=== PATIENT | male | born 1955 | race Caucasian/White ===

== ENCOUNTER 2017-04-12 10:05 | Inpatient (IN) | payer OTHER ==
[~2017-04-12] VITALS: Ht 170.2 cm; Wt 52.2 kg
[2017-04-12 10:08] VITALS: BP 143/110; PULSE 89; RESP 16; TEMP 98.6; O2SAT 95
[2017-04-12 10:24] VITALS: O2SAT 96
[2017-04-12] MEDS ORDERED: SODIUM CHLORIDE 0.9% FLUSH 10 ML FLUSH IVF PRN (10:30)
[2017-04-12] MEDS ORDERED: SODIUM CHLOR 0.9% 1000 ML INJ 1,000 ML IV ONE ×2 (10:30→10:45)
[2017-04-12] MEDS ORDERED: ONDANSETRON HCL 4 MG/2 ML VIAL IV PUSH ONE (10:45)
[2017-04-12] MEDS ORDERED: methylPREDNISolone SOD SUCC 125 MG/2 ML VIAL IV PUSH ONE (10:45)
[2017-04-12] MEDS ORDERED: RESP: ALBUTEROL 2.5 MG/IPRATROPIUM 0.5 MG NEB (SCH) INH ONE (10:45)
--- NOTE | 2017-04-12 10:46 | PD ---
HPI Chief Complaint: Cold / Flu Symptoms Time Seen by Provider: 10:20 Travel History International Travel<30 days: No Contact w/Intl Traveler<30days: No Traveled to known affect area: No History of Present Illness HPI Patient is a 61 year old male who presents to ER with complaints of flu like symptoms which has been ongoing for the past 5 days. Reports that for the past 4 days, he has been having high fevers with a tmax of 104.5. Reports that he has been having abdominal cramping with nausea and vomiting and diarrhea. Reports that he has had a nonproductive cough/congestion as well as body aches. He did not have the flu vaccine this year. Reports that he finally broke his fever yesterday. Reports that he was able to eat and drink yesterday for the first time but then began to feel nauseous last night. Patient denies any sick contacts, reports that he is a smoker with no medical problems. Patient denies any recent travels or trips. He has not taken any antipyretics this morning. Patient with no chest pain or shortness of breath at this time. PFSH Past Medical History Medical History: Denies Significant Hx Tetanus Vaccination: > 5 Years Past Surgical History Thoracic Surgery: Yes (back, lt shoulder) Social History Alcohol Use: No Tobacco Use: Yes Substance Use: No Allergies-Medications (Allergen,Severity, Reaction): Coded Allergies: vancomycin (Verified Allergy, Unknown, 04/12/17) Reported Meds & Prescriptions Reported Meds & Active Scripts Active No Active Prescriptions or Reported Medications Review of Systems General / Constitutional: Positive: Fever, Chills Eyes: No: Visual changes HENT: Positive: Congestion, No: Headaches, Vertigo, Lightheadedness, Neck Stiffness, Neck Pain Cardiovascular: No: Chest Pain or Discomfort, Palpitations, Irregular Rhythm, Tachycardia Respiratory: Positive: Cough, Wheezing, No: Shortness of Breath Gastrointestinal: Positive: Nausea, Vomiting, Diarrhea, No: Abdominal Pain, Constipation Genitourinary: No: Dysuria Musculoskeletal: No: Pain Skin: No Rash Neurologic: No: Weakness, Dizziness, Syncope, Focal Abnormalities, Headache Psychiatric: No: Depression Endocrine: No: Polydipsia Hematologic/Lymphatic: No: Easy Bruising Physical Exam Narrative GENERAL: Mild distress SKIN: Focused skin assessment warm/dry. HEAD: Atraumatic. Normocephalic. EYES: Pupils equal and round. No scleral icterus. No injection or drainage. ENT: No nasal bleeding or discharge. Mucous membranes pink and moist. NECK: Trachea midline. No JVD. CARDIOVASCULAR: Regular rate and rhythm. No murmur appreciated. RESPIRATORY: No accessory muscle use.mild expiratory wheezing at lung bases. Breath sounds equal bilaterally. GASTROINTESTINAL: Abdomen soft, non-tender, nondistended. Hepatic and splenic margins not palpable. MUSCULOSKELETAL: No obvious deformities. No clubbing. No cyanosis. No edema. NEUROLOGICAL: Awake and alert. No obvious cranial nerve deficits. Motor grossly within normal limits. Normal speech. PSYCHIATRIC: Appropriate mood and affect; insight and judgment normal. Data Data Last Documented VS Vital Signs Date Time Temp Pulse Resp B/P (MAP) Pulse Ox O2 Delivery O2 Flow Rate FiO2 04/12/17 10:59 97 21 04/12/17 10:24 04/12/17 10:08 98.6 89 16 Orders Orders Complete Blood Count With Diff (04/12/17 10:20) Basic Metabolic Panel (Bmp) (04/12/17 10:20) Influenzae A/B Antigen (04/12/17 10:20) Chest, Pa & Lat (04/12/17 10:20) Ecg Monitoring (04/12/17 10:20) Iv Access Insert/Monitor (04/12/17 10:20) Oximetry (04/12/17 10:20) Sodium Chloride 0.9% Flush (Ns Flush) (04/12/17 10:30) Sodium Chlor 0.9% 1000 Ml Inj (Ns 1000 M (04/12/17 10:30) Sodium Chlor 0.9% 1000 Ml Inj (Ns 1000 M (04/12/17 10:45) Ondansetron Inj (Zofran Inj) (04/12/17 10:45) Methylprednisolone So Succ Inj (Solumedr (04/12/17 10:45) Albuterol-Ipratropium Neb (Duoneb Neb) (04/12/17 10:45) Blood Culture (04/12/17 11:20) Azithromycin Inj (Zithromax Inj) (04/12/17 11:30) Ceftriaxone Inj (Rocephin Inj) (04/12/17 11:30) Admit To Inpatient (04/12/17 ) Code Status (04/12/17 13:00) Vital Signs (Adult) Q4H (04/12/17 13:00) Activity Oob With Assistance (04/12/17 13:00) Diet Heart Healthy (04/12/17 Lunch) Sodium Chloride 0.9% Flush (Ns Flush) (04/12/17 13:00) Sodium Chloride 0.9% Flush (Ns Flush) (04/12/17 21:00) Acetaminophen (Tylenol) (04/12/17 13:00) Ondansetron Inj (Zofran Inj) (04/12/17 13:00) Basic Metabolic Panel (Bmp) (04/13/17 06:00) Complete Blood Count With Diff (04/13/17 06:00) Chest, Pa & Lat (04/13/17 08:00) Electrocardiogram (04/12/17 13:00) Resp Oxygen Skip C Titrat 1-4 L (04/12/17 ) Pt Request For Service (04/12/17 13:00) Scd Bilateral/Knee High SHANA.BID (04/12/17 13:00) Naloxone Inj (Narcan Inj) (04/12/17 13:00) Magnesium Hydroxide Liq (Milk Of Magnesi (04/12/17 13:00) Inpatient Certification (04/12/17 ) Ns + Kcl 20 Meq Inj (Ns + Kcl 20 Meq Inj (04/12/17 13:15) Ceftriaxone Inj (Rocephin Inj) (04/13/17 08:00) Azithromycin (Zithromax) (04/13/17 09:00) Albuterol-Ipratropium Neb (Duoneb Neb) (04/12/17 14:00) Albuterol-Ipratropium Neb (Duoneb Neb) (04/12/17 13:15) Admit Order (Ed Use Only) (04/12/17 13:07) Labs Laboratory Tests Test 04/12/17 10:30 White Blood Count 16.8 TH/MM3 Red Blood Count 4.04 MIL/MM3 Hemoglobin 12.9 GM/DL Hematocrit 37.7 % Mean Corpuscular Volume 93.2 FL Mean Corpuscular Hemoglobin 32.0 PG Mean Corpuscular Hemoglobin Concent 34.3 % Red Cell Distribution Width 12.8 % Platelet Count 345 TH/MM3 Mean Platelet Volume 8.3 FL Neutrophils (%) (Auto) 85.9 % Lymphocytes (%) (Auto) 4.1 % Monocytes (%) (Auto) 8.9 % Eosinophils (%) (Auto) 0.1 % Basophils (%) (Auto) 1.0 % Neutrophils # (Auto) 14.4 TH/MM3 Lymphocytes # (Auto) 0.7 TH/MM3 Monocytes # (Auto) 1.5 TH/MM3 Eosinophils # (Auto) 0.0 TH/MM3 Basophils # (Auto) 0.2 TH/MM3 CBC Comment DIFF FINAL Differential Comment Blood Urea Nitrogen 12 MG/DL Creatinine 0.81 MG/DL Random Glucose 122 MG/DL Calcium Level 9.0 MG/DL Sodium Level 132 MEQ/L Potassium Level 4.4 MEQ/L Chloride Level 99 MEQ/L Carbon Dioxide Level 25.1 MEQ/L Anion Gap 8 MEQ/L Estimat Glomerular Filtration Rate 96 ML/MIN MDM Medical Decision Making Medical Screen Exam Complete: Yes Emergency Medical Condition: Yes Medical Record Reviewed: Yes Interpretation(s) Vital Signs Date Time Temp Pulse Resp B/P (MAP) Pulse Ox O2 Delivery O2 Flow Rate FiO2 04/12/17 10:24 96 04/12/17 10:08 98.6 89 16 143/110 (121) 95 Differential Diagnosis influenza, viral syndrome, copd exacerbation, pneumonia, gastroenteritis, electrolyte abnormality Narrative Course 61 year old male who presents to ER with c/o of of flu like symptoms which have been ongoing for the past 5 days. Patient was placed on a bilingual customer service upon arrival to the ER. Xray of chest ordered. CBC, BMP, influenza ordered. IVF as well as zofran ordered as patient does appear dehydrated. Patient does have mild expiratory wheezing on exam, IV solumedrol and a duoneb was ordered. Vital Signs Date Time Temp Pulse Resp B/P (MAP) Pulse Ox O2 Delivery O2 Flow Rate FiO2 04/12/17 10:59 97 21 04/12/17 10:24 96 04/12/17 10:08 98.6 89 16 143/110 (121) 95 CBC & BMP Diagram 04/12/17 10:30 Calcium Level 9.0 Last Impressions Chest X-Ray 04/12/17 1020 Signed Impressions: Service Date/Time: Wednesday, April 12, 2017 10:49 - CONCLUSION: Patchy partially consolidative segmental infiltrates in the right upper lobe. Recommend followup films to radiographic resolution. Eduar Smith MD Microbiology Date/Time Source Procedure Growth Status 04/12/17 12:10 Blood Peripheral Aerobic Blood Culture Pending Received 04/12/17 12:10 Blood Peripheral Anaerobic Blood Culture Pending Received 04/12/17 12:00 Blood Peripheral Aerobic Blood Culture Pending Received 04/12/17 12:00 Blood Peripheral Anaerobic Blood Culture Pending Received 04/12/17 10:30 Nasal Aspirate Influenza Types A,B Antigen (VANESSA) - Final NEGATIVE FOR FLU A AND B ANTIGEN.... Complete Patient reevaluated, patient reports that he is feeling only slightly better at this time. Patient is attempting to drink fluids with difficultly. Patient does not feel comfortable being discharged to home at this time. Plan to observe in hospital overnight. Case reviewed with Dr. Dixon who accepts pt to his service Diagnosis Primary Impression: Pneumonia Qualified Codes: J18.1 - Lobar pneumonia, unspecified organism Additional Impression: Nausea & vomiting Admitting Information Admitting Physician Requests: Observation Scripts No Active Prescriptions or Reported MedCeleste Becerra DO Apr 12, 2017 10:46
[2017-04-12 10:59] VITALS: O2SAT 97
[2017-04-12 11:00] LABS: AUTOMATED NEUTROPHIL # 14.4 TH/MM3 (1.8-7.7); BASOPHIL # 0.2 TH/MM3 (0-0.2); EOSINOPHIL % 0.1 % (0.0-4.0); HEMATOCRIT 37.7 % (39.0-51.0); HEMOGLOBIN 12.9 GM/DL (13.0-17.0); LYMPH % 4.1 % (9.0-44.0); LYMPHOCYTE # 0.7 TH/MM3 (1.0-4.8); MEAN CELL VOLUME 93.2 FL (80.0-100.0); MEAN CORPUSCULAR HGB CONC 34.3 % (32.0-36.0); MEAN PLATELET VOLUME 8.3 FL (7.0-11.0); MONO % 8.9 % (0.0-8.0); MONOCYTE # 1.5 TH/MM3 (0-0.9); NEUT % 85.9 % (16.0-70.0); PLATELET COUNT 345 TH/MM3 (150-450); RED BLOOD COUNT 4.04 MIL/MM3 (4.50-5.90); RED CELL DISTRIBUTION WIDTH 12.8 % (11.6-17.2); WHITE BLOOD COUNT 16.8 TH/MM3 (4.0-11.0)
--- NOTE | 2017-04-12 11:14 | RADRPT ---
EXAM DATE/TIME: 04/12/2017 10:49 [facility] COMPARISON: No previous studies available for comparison. INDICATIONS : No appetite, chest pain, short of breath., cough, fever MEDICAL HISTORY : None. SURGICAL HISTORY : None. ENCOUNTER: Initial ACUITY: 1 week PAIN SCORE: 10/10 LOCATION: Bilateral chest FINDINGS: The examination is abnormal demonstrating patchy areas of partial consolidation and bronchiectasis in the posterior right upper lung. This appears to be multisegmental in distribution, sparing the apex . The left lung is clear. The heart is normal size. Both hemidiaphragms are well delineated. The central bronchopulmonary markings, about the thomas, or well delineated. CONCLUSION: Patchy partially consolidative segmental infiltrates in the right upper lobe. Recommend followup jany ms to radiographic resolution. Eduar Smith MD on April 12, 2017 at 11:11 Board Certified Radiologist. This report was verified electronically.
[2017-04-12 11:26] LABS: BICARBONATE 25.1 MEQ/L (21.0-32.0); CREATININE 0.81 MG/DL (0.60-1.30)
[2017-04-12] MEDS ORDERED: cefTRIAXone INJ 1,000 MG in SODIUM CHLORIDE 0.9% INJ 100 ML IV ONE (11:30)
[2017-04-12] MEDS ORDERED: AZITHROMYCIN INJ 500 MG in SODIUM CHLOR 0.9% 250 ML INJ 250 ML IV ONE (11:30)
[2017-04-12] MEDS ORDERED: NALOXONE HCL 0.4 MG/ML AMP IV PUSH PRN (13:00)
[2017-04-12] MEDS ORDERED: SODIUM CHLORIDE 0.9% FLUSH 10 ML FLUSH IV FLUSH PRN (13:00)
[2017-04-12] MEDS ORDERED: ACETAMINOPHEN 325 MG TAB PO PRN (13:00)
[2017-04-12] MEDS ORDERED: MAGNESIUM HYDROXIDE SUSP 30 ML CUP PO PRN (13:00)
[2017-04-12] MEDS: NS + KCL 20 MEQ INJ 1,000 ML IV SCH (13:15)
[2017-04-12] MEDS ORDERED: RESP: ALBUTEROL 2.5 MG/IPRATROPIUM 0.5 MG NEB (PRN) NEB (13:15)
[2017-04-12 13:26] VITALS: TEMP 98.8
[2017-04-12] MEDS: RESP: ALBUTEROL 2.5 MG/IPRATROPIUM 0.5 MG NEB (SCH) NEB (13:42)
[2017-04-12] MEDS: NICOTINE 21 MG/24 HR PATCH T-DERMAL SCH (14:00)
[2017-04-12] MEDS: ONDANSETRON HCL 4 MG/2 ML VIAL IVP PRN (15:15)
[2017-04-12 16:00] VITALS: BP 135/67; PULSE 86; RESP 18; TEMP 98.6; O2SAT 95
--- NOTE | 2017-04-12 16:08 | HHI.HP ---
HPI Service [facility] Hospitalists Primary Care Physician Brian Ward MD Admission Diagnosis Pneumonia Chief Complaint: Fever, SOB, N/V, diarrhea Travel History International Travel<30 Days: No Contact w/Intl Traveler <30 Da: No Traveled to Known Affected Are: No History of Present Illness Mr. 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 Pt reports that his symptoms initially started with fever and myalgias with Tmax of 104.5. He had congestion and cough but not any worse than he typically has related to his smoking. Around 4-5 days ago he abdominal cramping with diarrhea which lasted 2-3 days. Then 2 days ago he started having vomiting and has been unable to keep much of any food or fluids down. He reports that today he has not had a significant fever, yesterday it was as high as 101 degrees. Yesterday he reports that he was able to eat and drink a small amount for the first time but then began to feel nauseous. He has been using Tylenol and Ibuprofen for the fevers and some holistic remedies for the fevers but otherwise no new medications. Patient denies any sick contacts, denies any recent travels or trips. He has not taken any antipyretics this morning. He has had some right sided chest discomfort with coughing but otherwise denies any SOB, palpitations , dizziness or weakness. He has lost about 4lbs over the last few days. Labs in the ED noted WBC count 16.8, Hgb 12.9/Hct 37.7, and Na+ 132. CXR noted patchy partially consolidative segmental infiltrates in the right upper lobe. Pt was started on Rocephin and Azithromycin in the ED. Review of Systems Constitutional: COMPLAINS OF: Fever, Change in appetite, DENIES: Diaphoretic episodes, Dizziness Eyes: DENIES: Vision loss Ears, nose, mouth, throat: DENIES: Hearing loss Respiratory: COMPLAINS OF: Cough, DENIES: Shortness of breath Cardiovascular: DENIES: Chest pain, Palpitations, Lower Extremity Edema Gastrointestinal: COMPLAINS OF: Diarrhea, Nausea, Vomiting Genitourinary: DENIES: Hematuria, Dysuria Musculoskeletal: DENIES: Back pain, Neck pain Integumentary: DENIES: Rash Neurologic: DENIES: Headache Psychiatric: DENIES: Confusion Past Family Social History Past Medical History Tobacco use 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, 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 Chronic back pain Past Surgical History Multiple surgeries to his hands and 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 Back surgery Tonsillectomy Right elbow surgery Reported Medications No prescription medications Allergies: Coded Allergies: vancomycin (Verified Allergy, Unknown, 04/12/17) Family History Noncontributory Social History (+)Tobacco use, smokes 1ppd x 40 years, but quit twice for a total of 10 years during that time (+)Marijuana use Denies any alcohol use Physical Exam Vital Signs Vital Signs Date Time Temp Pulse Resp B/P (MAP) Pulse Ox O2 Delivery O2 Flow Rate FiO2 04/12/17 13:26 98.8 04/12/17 10:59 97 21 04/12/17 10:24 96 04/12/17 10:08 98.6 89 16 143/110 (121) 95 Physical Exam GENERAL: This is a well-nourished, well-developed patient, in no apparent distress. SKIN: No rashes, ecchymoses or lesions. Cool and dry. HEENT: Atraumatic. Normocephalic. No temporal or scalp tenderness. No scleral icterus. Airway patent. NECK: Trachea midline, supple, nontender. CARDIO: Regular. RESP: CTA bilaterally. No wheezes, rales, or rhonchi. ABD: +BS, soft, non-tender, nondistended. EXT: Extremities without clubbing, cyanosis, or edema. NEURO: Awake and alert. Motor and sensory grossly within normal limits. Normal speech. Laboratory Laboratory Tests Test 04/12/17 10:30 White Blood Count 16.8 Red Blood Count 4.04 Hemoglobin 12.9 Hematocrit 37.7 Mean Corpuscular Volume 93.2 Mean Corpuscular Hemoglobin 32.0 Mean Corpuscular Hemoglobin Concent 34.3 Red Cell Distribution Width 12.8 Platelet Count 345 Mean Platelet Volume 8.3 Neutrophils (%) (Auto) 85.9 Lymphocytes (%) (Auto) 4.1 Monocytes (%) (Auto) 8.9 Eosinophils (%) (Auto) 0.1 Basophils (%) (Auto) 1.0 Neutrophils # (Auto) 14.4 Lymphocytes # (Auto) 0.7 Monocytes # (Auto) 1.5 Eosinophils # (Auto) 0.0 Basophils # (Auto) 0.2 CBC Comment DIFF FINAL Differential Comment Blood Urea Nitrogen 12 Creatinine 0.81 Random Glucose 122 Calcium Level 9.0 Sodium Level 132 Potassium Level 4.4 Chloride Level 99 Carbon Dioxide Level 25.1 Anion Gap 8 Estimat Glomerular Filtration Rate 96 Date/Time Source Procedure Growth Status 04/12/17 12:10 Blood Peripheral Aerobic Blood Culture Pending Received 04/12/17 12:10 Blood Peripheral Anaerobic Blood Culture Pending Received 04/12/17 10:30 Nasal Aspirate Influenza Types A,B Antigen (VANESSA) - Final NEGATIVE FOR FLU A AND B ANTIGEN.... Complete Result Diagram: 04/12/17 1030 04/12/17 1030 Imaging Last Impressions Chest X-Ray 04/12/17 1020 Signed Impressions: Service Date/Time: Wednesday, April 12, 2017 10:49 - CONCLUSION: Patchy partially consolidative segmental infiltrates in the right upper lobe. Recommend followup films to radiographic resolution. Eduar Smith MD Septic Shock Reassessment Heart: Regular rate and rhythm Lungs: Clear Skin: Warm Caprini VTE Risk Assessment Caprini VTE Risk Assessment: Mod/High Risk (score >= 2) Caprini Risk Assessment Model Point Value = 1 Point Value = 2 Point Value = 3 Point Value = 5 Age 41-60 Minor surgery BMI > 25 kg/m2 Swollen legs Varicose veins or History of unexplained or recurrent spontaneous Oral contraceptives or hormone replacement Sepsis (< 1 month) Serious lung disease, including pneumonia (< 1 month) Abnormal pulmonary function Acute myocardial infarction Congestive heart failure (< 1 month) History of inflammatory bowel disease Medical patient at bed rest Age 61-74 Arthroscopic surgery Major open surgery (> 45 min) Laparoscopic surgery (> 45 min) Malignancy Confined to bed (> 72 hours) Immobilizing plaster cast Central venous access Age >= 75 History of VTE Family history of VTE Factor V Leiden Prothrombin [id number] Lupus anticoagulant Anticardiolipin antibodies Elevated serum homocysteine Heparin-induced thrombocytopenia Other congenital or acquired thrombophilia Stroke (< 1 month) Elective arthroplasty Hip, pelvis, or leg fracture Acute spinal cord injury (< 1 month) Prophylaxis Regimen Total Risk Factor Score Risk Level Prophylaxis Regimen 0-1 Low Early ambulation 2 Moderate Order ONE of the following: *Sequential Compression Device (SCD) *Heparin 5000 units SQ BID 3-4 Higher Order ONE of the following medications: *Heparin 5000 units SQ TID *Enoxaparin/Lovenox 40 mg SQ daily (WT < 150 kg, CrCl > 30 mL/min) *Enoxaparin/Lovenox 30 mg SQ daily (WT < 150 kg, CrCl > 10-29 mL/min) *Enoxaparin/Lovenox 30 mg SQ BID (WT < 150 kg, CrCl > 30 mL/min) AND/OR *Sequential Compression Device (SCD) 5 or more Highest Order ONE of the following medications: *Heparin 5000 units SQ TID (Preferred with Epidurals) *Enoxaparin/Lovenox 40 mg SQ daily (WT < 150 kg, CrCl > 30 mL/min) *Enoxaparin/Lovenox 30 mg SQ daily (WT < 150 kg, CrCl > 10-29 mL/min) *Enoxaparin/Lovenox 30 mg SQ BID (WT < 150 kg, CrCl > 30 mL/min) AND *Sequential Compression Device (SCD) Assessment and Plan Problem List: (1) Pneumonia ICD Codes: J18.9 - Pneumonia, unspecified organism Status: Acute Plan: - Pt is a 61 y/o WM with hx of tobacco use and MRSA infections/osteomyelitis in his hands in the distant past who presented to ED at [facility] with complaints of flu like symptoms which began 6 days ago which included, fever with Tmax 104, myalgias, cough, congestion, N/V/D - No recent abx use, no new medications, denies any sick contacts, denies any recent travels or trips. - He has had some right sided chest discomfort with coughing - Labs in the ED noted WBC count 16.8, Hgb 12.9/Hct 37.7, and Na+ 132. - CXR noted patchy partially consolidative segmental infiltrates in the right upper lobe. - Pt was started on Rocephin and Azithromycin in the ED, we will continue these Abx - Pt tested negative for influenza in the ED - Blood cultures are pending. - IVF - Duonebs Q6H WA - Zofran PRN - Diet as tolerated - Consider Chest CT in AM - Supportive care - DVT prophylaxis with SCDs (2) Diarrhea ICD Codes: R19.7 - Diarrhea, unspecified Status: Acute Plan: - See above (3) Nausea & vomiting ICD Codes: R11.2 - Nausea with vomiting, unspecified Status: Acute Plan: - See above (4) Tobacco abuse ICD Codes: Z72.0 - Tobacco use Status: Chronic Plan: - Discussed cessation - Nicotine patch Assessment and Plan Patient examined. Assessment and plan formulated with Celeste Borden PA-C. I agree with the above. Problem Qualifiers (1) Pneumonia: Qualified Codes: J18.1 - Lobar pneumonia, unspecified organism Celeste Borden Apr 12, 2017 16:08 Mike Grigsby DO Apr 18, 2017 22:50
[2017-04-12 20:28] VITALS: BP 108/58; PULSE 69; RESP 21; TEMP 98.4; O2SAT 95
[2017-04-12] MEDS: SODIUM CHLORIDE 0.9% FLUSH 10 ML FLUSH IV FLUSH SCH (21:00)
[2017-04-13] VITALS (9 sets, daily range): BP systolic 106–123; BP diastolic 57–65; PULSE 58–73; RESP 17–18; TEMP 96.2–97.2; O2SAT 96–99
[2017-04-13] MEDS: NS + KCL 20 MEQ INJ 1,000 ML IV SCH ×2 (01:08→01:23)
[2017-04-13] MEDS: ONDANSETRON HCL 4 MG/2 ML VIAL IVP PRN (07:13)
[2017-04-13] MEDS: RESP: ALBUTEROL 2.5 MG/IPRATROPIUM 0.5 MG NEB (SCH) NEB ×3 (08:32→19:09)
[2017-04-13] MEDS: NICOTINE 21 MG/24 HR PATCH T-DERMAL SCH (08:56)
[2017-04-13] MEDS: REMOVE OLD PATCH T-DERMAL SCH (08:57)
[2017-04-13] MEDS: AZITHROMYCIN 250 MG TAB PO SCH (08:57)
[2017-04-13] MEDS: SODIUM CHLORIDE 0.9% FLUSH 10 ML FLUSH IV FLUSH SCH ×2 (08:59→21:54)
[2017-04-13] MEDS: cefTRIAXone INJ 1,000 MG in SODIUM CHLORIDE 0.9% INJ 100 ML IV SCH (08:59)
[2017-04-13 09:02] LABS: BASOPHIL % 0.4 % (0.0-2.0); HEMATOCRIT 33.2 % (39.0-51.0); HEMOGLOBIN 11.1 GM/DL (13.0-17.0); LYMPH % 7.9 % (9.0-44.0); MEAN CELL VOLUME 94.5 FL (80.0-100.0); MEAN CORPUSCULAR HEMOGLOBIN 31.7 PG (27.0-34.0); MEAN CORPUSCULAR HGB CONC 33.5 % (32.0-36.0); MEAN PLATELET VOLUME 8.6 FL (7.0-11.0); MONO % 8.6 % (0.0-8.0); MONOCYTE # 1.1 TH/MM3 (0-0.9); NEUT % 83.1 % (16.0-70.0); PLATELET COUNT 341 TH/MM3 (150-450); RED BLOOD COUNT 3.51 MIL/MM3 (4.50-5.90); RED CELL DISTRIBUTION WIDTH 12.8 % (11.6-17.2); WHITE BLOOD COUNT 13.2 TH/MM3 (4.0-11.0)
[2017-04-13] MEDS ORDERED: IOHEXOL 350 MG/ML 10 ML VIAL (for RAD DIAG) IVCONTRAST ONE (09:46)
[2017-04-13 10:15] LABS: BICARBONATE 24.7 MEQ/L (21.0-32.0); CALCIUM 8.7 MG/DL (8.5-10.1); CREATININE 0.79 MG/DL (0.60-1.30)
--- NOTE | 2017-04-13 11:42 | RADRPT ---
EXAM DATE/TIME: 04/13/2017 09:36 [facility] COMPARISON: CHEST PA & LAT, April 12, 2017, 10:49. INDICATIONS : Pneumonia, weight loss, cough, short of breath. IV CONTRAST: 60 cc Omnipaque 350 (iohexol) IV RADIATION DOSE: 3.36 CTDIvol (mGy) MEDICAL HISTORY : Osteomyelitis. SURGICAL HISTORY : None. ENCOUNTER: Initial ACUITY: 4 - 6 days PAIN SCALE: 0/10 LOCATION: Bilateral chest TECHNIQUE: Volumetric scanning of the chest was performed. Using automated exposure control and adjustment of t he mA and/or kV according to patient size, radiation dose was kept as low as reasonably achievable to obtain optimal diagnostic quality images. DICOM format image data is available electronically for review and comparison. Follow-up recommendations for detected pulmonary nodules are based at a minimum on nodule size and pa tient risk factors according to Fleischner Society Guidelines. FINDINGS: LUNGS: Diffuse emphysematous changes. Most pronounced within the upper lobes. A mixed interstitial and to a lesser degree intraalveolar opacity within the right upper lobe. There are areas of cavitation noted. No air fluid levels observed. More inferiorly within the right upper lobe this infiltrate turns to a groundglass appearance. Left lung is clear. PLEURA: There is no pleural thickening or pleural effusion. MEDIASTINUM: The heart and great vessels demonstrate no acute abnormality. There is no mediastinal or hilar lymph adenopathy. AXILLAE: Within normal limits. No lymphadenopathy. SKELETAL: Within normal limits for patient age. MISCELLANEOUS: The visualized upper abdominal organs demonstrate no acute abnormality. CONCLUSION: 1. Acute on chronic infiltrate within the right upper lobe. There is some cavitation observed suggest ing infection with atypical organisms. Followup studies to document resolution are needed. 2. Underlying emphysematous change. Eduar Silva Jr., MD on April 13, 2017 at 11:36 Board Certified Radiologist. This report was verified electronically.
--- NOTE | 2017-04-13 14:52 | EKG ---
Date Performed: 04/12/2017 Time Performed: 13:54:17 PTAGE: 61 years EKG: Sinus rhythm NORMAL ECG NO PREVIOUS TRACING DOCTOR: Yonny Ponce Interpretating Date/Time 04/13/2017 14:51:23
--- NOTE | 2017-04-13 14:52 | EKG ---
Date Performed: 04/12/2017 Time Performed: 13:54:17 PTAGE: 61 years EKG: Sinus rhythm NORMAL ECG NO PREVIOUS TRACING DOCTOR: Yonny Ponce Interpretating Date/Time 04/13/2017 14:51:23
--- NOTE | 2017-04-13 14:52 | EKG ---
Date Performed: 04/12/2017 Time Performed: 13:54:17 PTAGE: 61 years EKG: Sinus rhythm NORMAL ECG NO PREVIOUS TRACING DOCTOR: Yonny Ponce Interpretating Date/Time 04/13/2017 14:51:23
--- NOTE | 2017-04-13 16:34 | HHI.PR ---
Subjective Remarks fever improved from admission SOB improved from admission. Objective Vitals Vital Signs Date Time Temp Pulse Resp B/P (MAP) Pulse Ox O2 Delivery O2 Flow Rate FiO2 04/13/17 16:00 96.2 64 17 111/58 (75) 97 04/13/17 12:00 96.9 73 18 123/58 (79) 98 04/13/17 08:32 98 Nasal Cannula 2.00 04/13/17 08:00 96.9 58 17 119/65 (83) 96 04/13/17 01:46 98 Nasal Cannula 2.00 04/13/17 00:37 97.2 70 17 106/57 (73) 99 04/12/17 20:28 98.4 69 21 108/58 (75) 95 04/13/17 04/13/17 04/14/17 15:00 23:00 07:00 Intake Total 1100 ml Balance 1100 ml IV Total 1100 ml Result Diagram: 04/13/17 0810 04/13/17 0810 Imaging Last Impressions Chest CT 04/13/17 0600 Signed Impressions: Service Date/Time: Thursday, April 13, 2017 09:36 - CONCLUSION: 1. Acute on chronic infiltrate within the right upper lobe. There is some cavitation observed suggesting infection with atypical organisms. Followup studies to document resolution are needed. 2. Underlying emphysematous change. Eduar Silva Jr., MD Chest X-Ray 04/12/17 1020 Signed Impressions: Service Date/Time: Wednesday, April 12, 2017 10:49 - CONCLUSION: Patchy partially consolidative segmental infiltrates in the right upper lobe. Recommend followup films to radiographic resolution. Eduar Smith MD Objective Remarks GENERAL: This is a well-nourished, well-developed patient, in no apparent distress. CARDIOVASCULAR: Regular rate and rhythm without murmurs, gallops, or rubs. RESPIRATORY: Clear to auscultation. Breath sounds equal bilaterally. No wheezes , rales, or rhonchi. GASTROINTESTINAL: Abdomen soft, non-tender, nondistended. Normal active bowel sounds MUSCULOSKELETAL: Extremities without clubbing, cyanosis, or edema. NEURO: Alert & Oriented x4 to person, place, time, situation. Moves all ext x4 A/P Problem List: (1) Pneumonia ICD Codes: J18.9 - Pneumonia, unspecified organism Status: Acute Plan: - Pt is a 61 y/o WM with hx of tobacco use and MRSA infections/osteomyelitis in his hands in the distant past who [place] [facility] complaints of flu like symptoms which began 6 days ago which included, fever with Tmax 104, myalgias, cough, congestion, N/V/D - No recent abx use, no new medications, denies any sick contacts, denies any recent travels or trips. - He has had some right sided chest discomfort with coughing - Labs in the ED noted WBC count 16.8, Hgb 12.9/Hct 37.7, and Na+ 132. - CXR noted patchy partially consolidative segmental infiltrates in the right upper lobe. - Pt was started on Rocephin and Azithromycin (04/12 - present) - Pt tested negative for influenza in the ED - Blood cultures (04/12) --> NGTD - CT chest (04/13) --> right cavitating lesions - Consult Pulmonary, consider bronchoscopy with studies to identify pathogen and guide antibiotics - Duonebs Q6H WA - Zofran PRN - Diet as tolerated - Supportive care - DVT prophylaxis with SCDs (2) Diarrhea ICD Codes: R19.7 - Diarrhea, unspecified Status: Acute Plan: - See above (3) Nausea & vomiting ICD Codes: R11.2 - Nausea with vomiting, unspecified Status: Acute Plan: - See above (4) Tobacco abuse ICD Codes: Z72.0 - Tobacco use Status: Chronic Plan: - Discussed cessation - Nicotine patch Problem Qualifiers (1) Pneumonia: Qualified Codes: J18.1 - Lobar pneumonia, unspecified organism Mike Grigsby DO Apr 13, 2017 16:34
--- NOTE | 2017-04-13 19:26 | MB ---
cc: SHRUTI BAHENA M.D. DATE OF CONSULTATION 04/13/17 REASON FOR CONSULTATION Pneumonia. HISTORY OF PRESENT ILLNESS The patient is a 66-year-old male who comes to the emergency room with a 5-6 day history of fever, chills, cough and expectoration of dark brownish sputum, poor appetite, 2-3 pound weight loss in the last few days. The patient is in no distress. Oxygen saturation is adequate on room air. CT scan of the chest revealed right upper lobe infiltrate with an acute and chronic component with what appears to be some cavitation. 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 He has a long smoking history, continues to smoke until present. PAST MEDICAL HISTORY 1. MRSA infection and osteomyelitis of the right hand as mentioned above. This was in the s. 2. He had hand surgery 3. Back surgery, 4. Tonsillectomy, 5. Right elbow surgery in the past. MEDICATIONS None. ALLERGIES VANCOMYCIN FAMILY HISTORY Noncontributory. REVIEW OF SYSTEMS A 12-point review of systems as per HPI and past history otherwise negative. SOCIAL HISTORY Smokes a pack of cigarettes daily 40 years, has smoked for a short period of time in between. He smokes marijuana on occasion. Does not drink any alcohol. No TB or industrial exposure. PHYSICAL EXAMINATION GENERAL: The patient is alert. VITAL SIGNS: Temperature 98.8, pulse 86, respirations 16, blood pressure 140/96, oxygen saturation 97% room air. HEENT: Exam unremarkable. Eyes without icterus. NECK: Without adenopathy or thyroid enlargement. Central trachea. CHEST: Few scattered rhonchi right chest. CARDIAC: PMI distant. S1-S2 audible. No murmur or rub. ABDOMEN: Lax, bowel sounds audible. EXTREMITIES: No clubbing, cyanosis or edema. SKIN: Normal. No lymphadenopathy. LABORATORY DATA White count 16.8, hemoglobin 12, hematocrit 37, platelets 345,000. Sodium 132, potassium 4.4, BUN 12, creatinine 0.8. IMAGING STUDIES CT scan of the chest - right upper lung lobe infiltrate with cavitation. IMPRESSION 1. Right upper lobe pneumonia and cavitation. 2. Probable COPD. 3. Tobacco abuse. PLAN The patient has been started on antibiotic therapy and appropriately so. He does have a pneumonia, cavitation is noted as well. However, given the presentation of acute onset fever, cough expectoration, community-acquired pneumonia is a possibility. MRSA although a possibility the original infection has been over a decade ago. The patient does have copious sputum production and sputum culture will probably be helpful in that regard. Should the patient continue to improve well and good, if not we will proceed with bronchoscopy to assess if any underlying atypical infection or malignancy is present. I discussed this and explained to the patient in full detail. I do thank you for asking me to partake in Mr. Caruso's care. Shruti Bahena MD WWW/ /6:48 PM /7:05 PM
[2017-04-14] VITALS (7 sets, daily range): BP systolic 101–112; BP diastolic 55–79; PULSE 78–104; RESP 17–18; TEMP 97.3–101.3; O2SAT 93–98
[2017-04-14 07:55] LABS: AUTOMATED NEUTROPHIL # 12.4 TH/MM3 (1.8-7.7); BASOPHIL % 0.2 % (0.0-2.0); EOSINOPHIL % 0.3 % (0.0-4.0); HEMATOCRIT 33.7 % (39.0-51.0); HEMOGLOBIN 11.4 GM/DL (13.0-17.0); LYMPH % 9.2 % (9.0-44.0); LYMPHOCYTE # 1.4 TH/MM3 (1.0-4.8); MEAN CELL VOLUME 94.3 FL (80.0-100.0); MEAN CORPUSCULAR HGB CONC 33.9 % (32.0-36.0); MEAN PLATELET VOLUME 8.4 FL (7.0-11.0); MONO % 7.6 % (0.0-8.0); MONOCYTE # 1.1 TH/MM3 (0-0.9); NEUT % 82.7 % (16.0-70.0); PLATELET COUNT 395 TH/MM3 (150-450); RED BLOOD COUNT 3.57 MIL/MM3 (4.50-5.90)
[2017-04-14] MEDS: RESP: ALBUTEROL 2.5 MG/IPRATROPIUM 0.5 MG NEB (SCH) NEB ×3 (08:15→20:28)
[2017-04-14] MEDS ORDERED: TUBERCULIN, PPD 5 UNITS/0.1 ML SYRINGE I-DERMAL ONE (09:00)
--- NOTE | 2017-04-14 09:12 | HHI.PR ---
Subjective Remarks ALERT AMBULATINF NO SOB Objective Vital Signs Date Time Temp Pulse Resp B/P (MAP) Pulse Ox O2 Delivery O2 Flow Rate FiO2 04/14/17 08:18 98 04/14/17 08:00 99.7 79 17 107/57 (74) 97 04/14/17 00:00 97.7 78 18 107/79 (88) 98 04/13/17 20:14 96.4 72 18 113/62 (79) 97 04/13/17 19:09 97 Nasal Cannula 2.00 04/13/17 16:00 96.2 64 17 111/58 (75) 97 04/13/17 12:00 96.9 73 18 123/58 (79) 98 I/O 04/13/17 04/13/17 04/13/17 04/14/17 04/14/17 04/14/17 07:00 15:00 23:00 07:00 15:00 23:00 Intake Total 580 ml 5762 ml 320 ml Output Total 500 ml Balance 580 ml 5762 ml -180 ml Intake Oral 580 ml 3120 ml 320 ml IV Total 2642 ml Output Urine Total 500 ml # Voids 4 12 # Bowel Movements 2 0 Result Diagram: 04/14/17 0521 04/13/17 0810 Objective Remarks GENERAL: SKIN: Warm and dry. HEAD: Atraumatic. Normocephalic. EYES: Pupils equal and round. No scleral icterus. No injection or drainage. ENT: No nasal bleeding or discharge. Mucous membranes pink and moist. NECK: Trachea midline. No JVD. CARDIOVASCULAR: Regular rate and rhythm. RESPIRATORY: No accessory muscle use. Clear to auscultation. Breath sounds equal bilaterally. GASTROINTESTINAL: Abdomen soft, non-tender, nondistended. Hepatic and splenic margins not palpable. MUSCULOSKELETAL: Extremities without clubbing, cyanosis, or edema. No obvious deformities. NEUROLOGICAL: Awake and alert. No obvious cranial nerve deficits. Motor grossly within normal limits. Five out of 5 muscle strength in the arms and legs. Normal speech. PSYCHIATRIC: Appropriate mood and affect; insight and judgment normal. Assessment and Plan Assessment and Plan CAVITARY PNEUMONIA COPD SPUTUM CULTURE PENDING BLOOD CULTURE NEGATIVE PLAN ANTIBX CHECK SPUTUM CULTURE BRONCHOSCOPY Shruti Dyer MD Apr 14, 2017 09:12
[2017-04-14] MEDS: cefTRIAXone INJ 1,000 MG in SODIUM CHLORIDE 0.9% INJ 100 ML IV SCH (09:49)
[2017-04-14] MEDS: AZITHROMYCIN 250 MG TAB PO SCH (09:49)
[2017-04-14] MEDS: SODIUM CHLORIDE 0.9% FLUSH 10 ML FLUSH IV FLUSH SCH ×2 (09:53→22:07)
[2017-04-14] MEDS: REMOVE OLD PATCH T-DERMAL SCH (09:55)
[2017-04-14] MEDS: NICOTINE 21 MG/24 HR PATCH T-DERMAL SCH (09:55)
[2017-04-14 13:08] LABS: INTERNATIONAL NORMALIZED RATIO 1.1 RATIO; PROTHROMBIN TIME - PATIENT 12.4 SEC (9.8-11.6)
--- NOTE | 2017-04-14 13:29 | HHI.PR ---
Subjective Remarks Patient reports only small soft BMs feels as though his is unable to have a complete BM reports chest congestion has moved to the left lung Objective Vitals Vital Signs Date Time Temp Pulse Resp B/P (MAP) Pulse Ox O2 Delivery O2 Flow Rate FiO2 04/14/17 12:00 99.3 89 17 112/56 (74) 98 04/14/17 08:18 98 04/14/17 08:00 99.7 79 17 107/57 (74) 97 04/14/17 00:00 97.7 78 18 107/79 (88) 98 04/13/17 20:14 96.4 72 18 113/62 (79) 97 04/13/17 19:09 97 Nasal Cannula 2.00 04/13/17 16:00 96.2 64 17 111/58 (75) 97 04/14/17 04/14/17 04/15/17 15:00 23:00 07:00 Intake Total 100 ml Balance 100 ml IV Total 100 ml Result Diagram: 04/14/17 0521 04/13/17 0810 Other Results Laboratory Tests Test 04/12/17 10:30 04/13/17 08:10 04/14/17 05:21 04/14/17 12:38 White Blood Count 16.8 TH/MM3 13.2 TH/MM3 15.0 TH/MM3 Red Blood Count 4.04 MIL/MM3 3.51 MIL/MM3 3.57 MIL/MM3 Hemoglobin 12.9 GM/DL 11.1 GM/DL 11.4 GM/DL Hematocrit 37.7 % 33.2 % 33.7 % Mean Corpuscular Volume 93.2 FL 94.5 FL 94.3 FL Mean Corpuscular Hemoglobin 32.0 PG 31.7 PG 32.0 PG Mean Corpuscular Hemoglobin Concent 34.3 % 33.5 % 33.9 % Red Cell Distribution Width 12.8 % 12.8 % 13.0 % Platelet Count 345 TH/MM3 341 TH/MM3 395 TH/MM3 Mean Platelet Volume 8.3 FL 8.6 FL 8.4 FL Neutrophils (%) (Auto) 85.9 % 83.1 % 82.7 % Lymphocytes (%) (Auto) 4.1 % 7.9 % 9.2 % Monocytes (%) (Auto) 8.9 % 8.6 % 7.6 % Eosinophils (%) (Auto) 0.1 % 0.0 % 0.3 % Basophils (%) (Auto) 1.0 % 0.4 % 0.2 % Neutrophils # (Auto) 14.4 TH/MM3 11.0 TH/MM3 12.4 TH/MM3 Lymphocytes # (Auto) 0.7 TH/MM3 1.0 TH/MM3 1.4 TH/MM3 Monocytes # (Auto) 1.5 TH/MM3 1.1 TH/MM3 1.1 TH/MM3 Eosinophils # (Auto) 0.0 TH/MM3 0.0 TH/MM3 0.0 TH/MM3 Basophils # (Auto) 0.2 TH/MM3 0.0 TH/MM3 0.0 TH/MM3 CBC Comment DIFF FINAL DIFF FINAL DIFF FINAL Differential Comment Blood Urea Nitrogen 12 MG/DL 11 MG/DL Creatinine 0.81 MG/DL 0.79 MG/DL Random Glucose 122 MG/DL 122 MG/DL Calcium Level 9.0 MG/DL 8.7 MG/DL Sodium Level 132 MEQ/L 136 MEQ/L Potassium Level 4.4 MEQ/L 4.2 MEQ/L Chloride Level 99 MEQ/L 103 MEQ/L Carbon Dioxide Level 25.1 MEQ/L 24.7 MEQ/L Anion Gap 8 MEQ/L 8 MEQ/L Estimat Glomerular Filtration Rate 96 ML/MIN 99 ML/MIN Prothrombin Time 12.4 SEC Prothromb Time International Ratio 1.1 RATIO Imaging Last Impressions Chest CT 04/13/17 0600 Signed Impressions: Service Date/Time: Thursday, April 13, 2017 09:36 - CONCLUSION: 1. Acute on chronic infiltrate within the right upper lobe. There is some cavitation observed suggesting infection with atypical organisms. Followup studies to document resolution are needed. 2. Underlying emphysematous change. Eduar Silva Jr., MD Chest X-Ray 04/12/17 1020 Signed Impressions: Service Date/Time: Wednesday, April 12, 2017 10:49 - CONCLUSION: Patchy partially consolidative segmental infiltrates in the right upper lobe. Recommend followup films to radiographic resolution. Eduar Smith MD Objective Remarks GENERAL: This is a well-nourished, well-developed patient, in no apparent distress. CARDIOVASCULAR: Regular rate and rhythm without murmurs, gallops, or rubs. RESPIRATORY: poor air movement with scattered expiratory wheezing GASTROINTESTINAL: Abdomen soft, non-tender, nondistended. Normal active bowel sounds MUSCULOSKELETAL: Extremities without clubbing, cyanosis, or edema. NEURO: Alert & Oriented x4 to person, place, time, situation. Moves all ext x4 A/P Problem List: (1) Pneumonia ICD Codes: J18.9 - Pneumonia, unspecified organism Status: Acute Plan: - Pt is a 61 y/o WM with hx of tobacco use and MRSA infections/osteomyelitis in his hands in the distant past who presented to ED at [facility] with complaints of flu like symptoms which began 6 days ago which included, fever with Tmax 104, myalgias, cough, congestion, N/V/D - No recent abx use, no new medications, denies any sick contacts, denies any recent travels or trips. - He has had some right sided chest discomfort with coughing - Labs in the ED noted WBC count 16.8, Hgb 12.9/Hct 37.7, and Na+ 132. - CXR noted patchy partially consolidative segmental infiltrates in the right upper lobe. - Pt was started on Rocephin and Azithromycin (04/12 - present) - Pt tested negative for influenza in the ED - Blood cultures (04/12) --> NGTD - CT chest (04/13) --> right cavitating lesions - expectorated sputum culture pending - Consult Pulmonary, Plan bronchoscopy in AM with studies to identify pathogen and guide antibiotics - Duonebs Q6H WA - add prednisone 60 mg PO BID - Zofran PRN - Diet as tolerated - Supportive care - DVT prophylaxis with SCDs (2) Diarrhea ICD Codes: R19.7 - Diarrhea, unspecified Status: Acute Plan: - See above (3) Nausea & vomiting ICD Codes: R11.2 - Nausea with vomiting, unspecified Status: Acute Plan: - See above (4) Tobacco abuse ICD Codes: Z72.0 - Tobacco use Status: Chronic Plan: - Discussed cessation - Nicotine patch Assessment and Plan Patient examined. Assessment and plan formulated with Amanda Macias PA-C. I agree with the above. Problem Qualifiers (1) Pneumonia: Qualified Codes: J18.1 - Lobar pneumonia, unspecified organism Amanda Macias Apr 14, 2017 13:29 Mike Grigsby DO Apr 18, 2017 22:47
[2017-04-14] MEDS ORDERED: MAGNESIUM HYDROXIDE SUSP 30 ML CUP PO ONE (14:00)
[2017-04-14] MEDS: predniSONE 20 MG TAB PO SCH (15:22)
--- NOTE | 2017-04-14 17:08 | RADRPT ---
EXAM DATE/TIME: 04/14/2017 15:47 [place] COMPARISON: No previous studies available for comparison. INDICATIONS : Diarrhea starting today MEDICAL HISTORY : None. SURGICAL HISTORY : Fusion, lumbar. ENCOUNTER: Initial ACUITY: 1 day PAIN SCORE: 0/10 LOCATION: Abdomen FINDINGS: Supine view of the abdomen was performed. The abdominal bowel gas pattern is normal. No abnormal ma sses, calcifications, or organomegaly is seen. Prior lumbar surgery with 2 osseous screws securing th e L4-5 and L5-S1 interspaces. The right-sided screw at L4-5 is fractured. Degenerative disc disease t hroughout the lumbar spine with loss of disc height. CONCLUSION: 1. Radiographically benign abdomen without obstruction or pneumoperitoneum. 2. Osseous screws securing the L4-5 and L5-S1 levels. The right-sided L4-5 screw is fractured. Cyril Berrios MD on April 14, 2017 at 17:05 Board Certified Radiologist. This report was verified electronically.
[2017-04-14] MEDS ORDERED: LACTATED RINGER'S 1000 ML IV PRN (21:30)
[2017-04-14] MEDS ORDERED: METOPROLOL TARTRATE 25 MG TAB PO PRN (21:30)
[2017-04-15] VITALS (7 sets, daily range): BP systolic 107–116; BP diastolic 57–71; PULSE 75–92; RESP 18–21; TEMP 96.9–97.8; O2SAT 95–100
[2017-04-15] MEDS: predniSONE 20 MG TAB PO SCH ×2 (02:14→15:00)
[2017-04-15] MEDS: RESP: ALBUTEROL 2.5 MG/IPRATROPIUM 0.5 MG NEB (SCH) NEB ×3 (07:47→20:10)
[2017-04-15] MEDS: cefTRIAXone INJ 1,000 MG in SODIUM CHLORIDE 0.9% INJ 100 ML IV SCH (08:56)
[2017-04-15] MEDS: AZITHROMYCIN 250 MG TAB PO SCH (08:56)
[2017-04-15] MEDS: SODIUM CHLORIDE 0.9% FLUSH 10 ML FLUSH IV FLUSH SCH ×2 (08:57→22:25)
[2017-04-15] MEDS: REMOVE OLD PATCH T-DERMAL SCH (08:59)
[2017-04-15] MEDS: NICOTINE 21 MG/24 HR PATCH T-DERMAL SCH (09:00)
[2017-04-15] MEDS ORDERED: PROPOFOL 200 MG/20 ML AMP IV ONE (12:00)
[2017-04-15] MEDS ORDERED: LIDOCAINE HCL 1% PF 5 ML AMPULE OTHER ONE (12:00)
[2017-04-15 12:22] LABS: AUTOMATED NEUTROPHIL # 11.7 TH/MM3 (1.8-7.7); BASOPHIL # 0.1 TH/MM3 (0-0.2); BASOPHIL % 0.5 % (0.0-2.0); EOSINOPHIL % 0.1 % (0.0-4.0); HEMATOCRIT 34.4 % (39.0-51.0); HEMOGLOBIN 11.6 GM/DL (13.0-17.0); LYMPH % 11.7 % (9.0-44.0); LYMPHOCYTE # 1.7 TH/MM3 (1.0-4.8); MEAN CORPUSCULAR HEMOGLOBIN 32.1 PG (27.0-34.0); MEAN CORPUSCULAR HGB CONC 33.8 % (32.0-36.0); MEAN PLATELET VOLUME 8.1 FL (7.0-11.0); MONOCYTE # 0.9 TH/MM3 (0-0.9); NEUT % 81.7 % (16.0-70.0); PLATELET COUNT 405 TH/MM3 (150-450); RED BLOOD COUNT 3.62 MIL/MM3 (4.50-5.90); RED CELL DISTRIBUTION WIDTH 12.8 % (11.6-17.2); WHITE BLOOD COUNT 14.4 TH/MM3 (4.0-11.0)
[2017-04-15] MEDS ORDERED: EPINEPHrine HCL (1:1000) 1 MG/ML VIAL ONE (13:57)
[2017-04-15] MEDS ORDERED: LIDOCAINE HCL 2% 50 ML VIAL ONE (13:57)
[2017-04-15] MEDS ORDERED: SODIUM CHLORIDE 0.9% 20 ML VIAL ONE (15:44)
--- NOTE | 2017-04-15 16:07 | HHI.PR ---
Subjective Remarks ALERT AMBULATINF NO SOB Objective Vital Signs Date Time Temp Pulse Resp B/P (MAP) Pulse Ox O2 Delivery O2 Flow Rate FiO2 04/15/17 12:00 97.7 92 19 114/71 (85) 98 04/15/17 08:00 96.9 75 19 114/62 (79) 97 04/15/17 07:47 97 21 04/15/17 00:33 97.8 87 18 116/62 (80) 96 04/14/17 20:39 97.3 80 18 101/59 (73) 96 04/14/17 20:28 93 21 I/O 04/14/17 04/14/17 04/14/17 04/15/17 04/15/17 04/15/17 07:00 15:00 23:00 07:00 15:00 23:00 Intake Total 320 ml 100 ml 2500 ml 100 ml Output Total 500 ml Balance -180 ml 100 ml 2500 ml 100 ml Intake Oral 320 ml 2500 ml 0 ml IV Total 100 ml 100 ml Output Urine Total 500 ml # Voids 12 # Bowel Movements 0 1 Result Diagram: 04/15/17 1159 04/13/17 0810 Objective Remarks GENERAL: SKIN: Warm and dry. HEAD: Atraumatic. Normocephalic. EYES: Pupils equal and round. No scleral icterus. No injection or drainage. ENT: No nasal bleeding or discharge. Mucous membranes pink and moist. NECK: Trachea midline. No JVD. CARDIOVASCULAR: Regular rate and rhythm. RESPIRATORY: No accessory muscle use. Clear to auscultation. Breath sounds equal bilaterally. GASTROINTESTINAL: Abdomen soft, non-tender, nondistended. Hepatic and splenic margins not palpable. MUSCULOSKELETAL: Extremities without clubbing, cyanosis, or edema. No obvious deformities. NEUROLOGICAL: Awake and alert. No obvious cranial nerve deficits. Motor grossly within normal limits. Five out of 5 muscle strength in the arms and legs. Normal speech. PSYCHIATRIC: Appropriate mood and affect; insight and judgment normal. Assessment and Plan Assessment and Plan CAVITARY PNEUMONIA COPD SPUTUM CULTURE PENDING BLOOD CULTURE NEGATIVE PLAN ANTIBX CHECK SPUTUM CULTURE BRONCHOSCOPY TODAY Shruti Bahena MD Apr 15, 2017 16:07
[2017-04-15] MEDS ORDERED: *RESP: ALBUTEROL 2.5 MG/3 ML NEB (PRN) PERIprocedural Use ONLY NEB ONE (16:14)
--- NOTE | 2017-04-15 17:27 | HHI.PR ---
Subjective Remarks Patient up ambulating about room s/p bronchoscopy today offers no specific complaints Objective Vitals Vital Signs Date Time Temp Pulse Resp B/P (MAP) Pulse Ox O2 Delivery O2 Flow Rate FiO2 04/15/17 16:44 97.8 83 20 107/57 (74) 96 04/15/17 16:27 98.4 84 16 97/52 (67) 94 Room Air 04/15/17 16:15 85 16 115/59 (77) 95 Room Air 04/15/17 16:11 98.0 84 16 113/53 (73) 94 Nasal Cannula 2 04/15/17 12:00 97.7 92 19 114/71 (85) 98 04/15/17 08:00 96.9 75 19 114/62 (79) 97 04/15/17 07:47 97 21 04/15/17 00:33 97.8 87 18 116/62 (80) 96 04/14/17 20:39 97.3 80 18 101/59 (73) 96 04/14/17 20:28 93 21 04/15/17 04/15/17 04/16/17 15:00 23:00 07:00 Intake Total 100 ml Balance 100 ml Intake Oral 0 ml IV Total 100 ml Result Diagram: 04/15/17 1159 04/13/17 0810 Other Results Laboratory Tests Test 04/13/17 08:10 04/14/17 05:21 04/14/17 12:38 04/15/17 11:59 White Blood Count 13.2 TH/MM3 15.0 TH/MM3 14.4 TH/MM3 Red Blood Count 3.51 MIL/MM3 3.57 MIL/MM3 3.62 MIL/MM3 Hemoglobin 11.1 GM/DL 11.4 GM/DL 11.6 GM/DL Hematocrit 33.2 % 33.7 % 34.4 % Mean Corpuscular Volume 94.5 FL 94.3 FL 95.0 FL Mean Corpuscular Hemoglobin 31.7 PG 32.0 PG 32.1 PG Mean Corpuscular Hemoglobin Concent 33.5 % 33.9 % 33.8 % Red Cell Distribution Width 12.8 % 13.0 % 12.8 % Platelet Count 341 TH/MM3 395 TH/MM3 405 TH/MM3 Mean Platelet Volume 8.6 FL 8.4 FL 8.1 FL Neutrophils (%) (Auto) 83.1 % 82.7 % 81.7 % Lymphocytes (%) (Auto) 7.9 % 9.2 % 11.7 % Monocytes (%) (Auto) 8.6 % 7.6 % 6.0 % Eosinophils (%) (Auto) 0.0 % 0.3 % 0.1 % Basophils (%) (Auto) 0.4 % 0.2 % 0.5 % Neutrophils # (Auto) 11.0 TH/MM3 12.4 TH/MM3 11.7 TH/MM3 Lymphocytes # (Auto) 1.0 TH/MM3 1.4 TH/MM3 1.7 TH/MM3 Monocytes # (Auto) 1.1 TH/MM3 1.1 TH/MM3 0.9 TH/MM3 Eosinophils # (Auto) 0.0 TH/MM3 0.0 TH/MM3 0.0 TH/MM3 Basophils # (Auto) 0.0 TH/MM3 0.0 TH/MM3 0.1 TH/MM3 CBC Comment DIFF FINAL DIFF FINAL DIFF FINAL Differential Comment Blood Urea Nitrogen 11 MG/DL Creatinine 0.79 MG/DL Random Glucose 122 MG/DL Calcium Level 8.7 MG/DL Sodium Level 136 MEQ/L Potassium Level 4.2 MEQ/L Chloride Level 103 MEQ/L Carbon Dioxide Level 24.7 MEQ/L Anion Gap 8 MEQ/L Estimat Glomerular Filtration Rate 99 ML/MIN Prothrombin Time 12.4 SEC Prothromb Time International Ratio 1.1 RATIO Imaging Last Impressions Chest CT 04/13/17 0600 Signed Impressions: Service Date/Time: Thursday, April 13, 2017 09:36 - CONCLUSION: 1. Acute on chronic infiltrate within the right upper lobe. There is some cavitation observed suggesting infection with atypical organisms. Followup studies to document resolution are needed. 2. Underlying emphysematous change. Eduar Silva Jr., MD Chest X-Ray 04/12/17 1020 Signed Impressions: Service Date/Time: Wednesday, April 12, 2017 10:49 - CONCLUSION: Patchy partially consolidative segmental infiltrates in the right upper lobe. Recommend followup films to radiographic resolution. Eduar Smith MD Objective Remarks GENERAL: This is a well-nourished, well-developed patient, in no apparent distress. CARDIOVASCULAR: Regular rate and rhythm without murmurs, gallops, or rubs. RESPIRATORY: clear GASTROINTESTINAL: Abdomen soft, non-tender, nondistended. Normal active bowel sounds MUSCULOSKELETAL: Extremities without clubbing, cyanosis, or edema. NEURO: Alert & Oriented x4 to person, place, time, situation. Moves all ext x4 Procedures bronchoscopy with Dr. Bahena 04/15/17 A/P Problem List: (1) Pneumonia ICD Codes: J18.9 - Pneumonia, unspecified organism Status: Acute Plan: - Pt is a 61 y/o WM with hx of tobacco use and MRSA infections/osteomyelitis in his hands in the distant past who presented to ED at [facility] with complaints of flu like symptoms which began 6 days ago which included, fever with Tmax 104, myalgias, cough, congestion, N/V/D - No recent abx use, no new medications, denies any sick contacts, denies any recent travels or trips. - He has had some right sided chest discomfort with coughing - Labs in the ED noted WBC count 16.8, Hgb 12.9/Hct 37.7, and Na+ 132. - CXR noted patchy partially consolidative segmental infiltrates in the right upper lobe. - Pt was started on Rocephin and Azithromycin (04/12 - present) - Pt tested negative for influenza in the ED - Blood cultures (04/12) --> NGTD - CT chest (04/13) --> right cavitating lesions - expectorated sputum culture reviewed pseudomonas await sensitivity - Consult Pulmonary, S/P bronchoscopy 04/15/17 - Duonebs Q6H WA - prednisone 60 mg PO BID - Zofran PRN - Diet as tolerated - Supportive care - plan to DC tomorrow after sensitivity resulted on PO abx - DVT prophylaxis with SCDs (2) Diarrhea ICD Codes: R19.7 - Diarrhea, unspecified Status: Acute Plan: - See above (3) Nausea & vomiting ICD Codes: R11.2 - Nausea with vomiting, unspecified Status: Acute Plan: - See above (4) Tobacco abuse ICD Codes: Z72.0 - Tobacco use Status: Chronic Plan: - Discussed cessation - Nicotine patch Assessment and Plan Patient examined. Assessment and plan formulated with Amanda Macias PA-C. I agree with the above. Problem Qualifiers (1) Pneumonia: Qualified Codes: J18.1 - Lobar pneumonia, unspecified organism Amanda Macias Apr 15, 2017 17:27 Mike Grigsby DO Apr 18, 2017 22:48
[2017-04-15] MEDS ORDERED: DO NOT ADM ANY ANTICOAGULANT DRUGS PRN (18:15)
--- NOTE | 2017-04-15 19:05 | MR ---
cc: SHRUTI BAHENA M.D. DATE 04/15/17 PROCEDURE Fiberoptic bronchoscopy flexible INDICATION Cavitary density right upper lung, rule out underlying malignancy. Rule out chronic inflammatory process. PROCEDURE IN DETAIL Fiberoptic bronchoscopy performed via LMA. Vocal cords intact. Trachea mildly hyperemic. Vanessa sharp. [place] mucoid secretion aspirated. Right upper, middle and lower lobe, left upper lower lobes inspected. No obstructive pathology or mass lesion seen. Bronchoscope then introduced to the right upper lobe. Washings obtained for routine TB, fungal cultures, cytological exam. Cytologic brush biopsies obtained for cytological exam. Procedure well tolerated. The patient transferred to recovery in stable condition. IMPRESSION 1. Mild tracheobronchitis 2. No obstruction or mass lesion 3. Samples obtained as above 4. Procedure well tolerated. 5. Patient transferred to recovery in stable condition. Shruti Bahena MD WWW/ /4:08 PM /6:52 PM
[2017-04-16] VITALS: BP 120/63; PULSE 93; RESP 21; TEMP 98.6; O2SAT 98
[2017-04-16] MEDS: predniSONE 20 MG TAB PO SCH ×2 (03:00→15:00)
[2017-04-16] MEDS: RESP: ALBUTEROL 2.5 MG/IPRATROPIUM 0.5 MG NEB (SCH) NEB ×2 (07:24→11:00)
[2017-04-16 07:25] VITALS: O2SAT 95
--- NOTE | 2017-04-16 07:57 | HHI.PR ---
Subjective Remarks ALERT AMBULATING NO SOB Objective Vital Signs Date Time Temp Pulse Resp B/P (MAP) Pulse Ox O2 Delivery O2 Flow Rate FiO2 04/16/17 07:25 95 21 04/16/17 00:00 98.6 93 21 120/63 (82) 98 04/15/17 20:10 95 21 04/15/17 20:00 97.5 82 21 108/64 (79) 100 04/15/17 16:44 97.8 83 20 107/57 (74) 96 04/15/17 16:27 98.4 84 16 97/52 (67) 94 Room Air 04/15/17 16:15 85 16 115/59 (77) 95 Room Air 04/15/17 16:11 98.0 84 16 113/53 (73) 94 Nasal Cannula 2 04/15/17 12:00 97.7 92 19 114/71 (85) 98 04/15/17 08:00 96.9 75 19 114/62 (79) 97 I/O 04/15/17 04/15/17 04/15/17 04/16/17 04/16/17 04/16/17 07:00 15:00 23:00 07:00 15:00 23:00 Intake Total 100 ml 1020 ml 240 ml Balance 100 ml 1020 ml 240 ml Intake Oral 0 ml 720 ml 240 ml IV Total 100 ml 0 ml Other 300 ml # Voids 4 2 Result Diagram: 04/15/17 1159 04/13/17 0810 Objective Remarks GENERAL: SKIN: Warm and dry. HEAD: Atraumatic. Normocephalic. EYES: Pupils equal and round. No scleral icterus. No injection or drainage. ENT: No nasal bleeding or discharge. Mucous membranes pink and moist. NECK: Trachea midline. No JVD. CARDIOVASCULAR: Regular rate and rhythm. RESPIRATORY: No accessory muscle use. Clear to auscultation. Breath sounds equal bilaterally. GASTROINTESTINAL: Abdomen soft, non-tender, nondistended. Hepatic and splenic margins not palpable. MUSCULOSKELETAL: Extremities without clubbing, cyanosis, or edema. No obvious deformities. NEUROLOGICAL: Awake and alert. No obvious cranial nerve deficits. Motor grossly within normal limits. Five out of 5 muscle strength in the arms and legs. Normal speech. PSYCHIATRIC: Appropriate mood and affect; insight and judgment normal. Assessment and Plan Assessment and Plan CAVITARY PNEUMONIA COPD SPUTUM CULTURE PSEUDOMONAS STABLE POST BRONCHOSCOPY PLAN ANTIBX CHECK SPUTUM CULTURE BRONCHOSCOPY TODAY Shruti Bahena MD Apr 16, 2017 07:57
[2017-04-16 08:00] VITALS: BP 112/56; PULSE 77; RESP 21; TEMP 98.6; O2SAT 98
[2017-04-16] MEDS: AZITHROMYCIN 250 MG TAB PO SCH (08:52)
[2017-04-16] MEDS: SODIUM CHLORIDE 0.9% FLUSH 10 ML FLUSH IV FLUSH SCH (08:52)
[2017-04-16] MEDS: REMOVE OLD PATCH T-DERMAL SCH (08:52)
[2017-04-16] MEDS: cefTRIAXone INJ 1,000 MG in SODIUM CHLORIDE 0.9% INJ 100 ML IV SCH (08:52)
[2017-04-16] MEDS: NICOTINE 21 MG/24 HR PATCH T-DERMAL SCH (08:53)
[2017-04-16 12:00] VITALS: BP 126/58; PULSE 95; RESP 20; TEMP 97.8; O2SAT 99
[2017-04-16] MEDS ORDERED: LEVO500T8 PO (13:40)
[2017-04-16] MEDS ORDERED: ALBUAER3 INH (13:42)
--- NOTE | 2017-04-16 13:43 | HHI.DCPOC ---
Discharge Care Plan Diagnosis: (1) Pneumonia (2) Tobacco abuse Goals to Promote Your Health * To prevent worsening of your condition and complications * To maintain your health at the optimal level Directions to Meet Your Goals Take your medications as prescribed Follow your dietary instruction Follow activity as directed Keep your appointments as scheduled Take your immunizations and boosters as scheduled If your symptoms worsen call your PCP, if no PCP go to Urgent Care Center or Emergency Room Smoking is Dangerous to Your Health. Avoid second hand smoke Call the 24-hour hour crisis hotline for domestic abuse at Amanda Macias Apr 16, 2017 13:43 Mike Grigsby DO Apr 18, 2017 22:51
--- NOTE | 2017-04-16 13:43 | HHI.DCPOC ---
Discharge Care Plan Diagnosis: (1) Pneumonia (2) Tobacco abuse Goals to Promote Your Health * To prevent worsening of your condition and complications * To maintain your health at the optimal level Directions to Meet Your Goals Take your medications as prescribed Follow your dietary instruction Follow activity as directed Keep your appointments as scheduled Take your immunizations and boosters as scheduled If your symptoms worsen call your PCP, if no PCP go to Urgent Care Center or Emergency Room Smoking is Dangerous to Your Health. Avoid second hand smoke Call the 24-hour hour crisis hotline for domestic abuse at Amanda Macias Apr 16, 2017 13:43 Mike Grigsby DO Apr 18, 2017 22:51
--- NOTE | 2017-04-16 13:43 | HHI.DCPOC ---
Discharge Care Plan Diagnosis: (1) Pneumonia (2) Tobacco abuse Goals to Promote Your Health * To prevent worsening of your condition and complications * To maintain your health at the optimal level Directions to Meet Your Goals Take your medications as prescribed Follow your dietary instruction Follow activity as directed Keep your appointments as scheduled Take your immunizations and boosters as scheduled If your symptoms worsen call your PCP, if no PCP go to Urgent Care Center or Emergency Room Smoking is Dangerous to Your Health. Avoid second hand smoke Call the 24-hour hour crisis hotline for domestic abuse at Amanda Macias Apr 16, 2017 13:43 Mike Grigsby DO Apr 18, 2017 22:51
--- NOTE | 2017-04-16 13:46 | HHI.DS ---
Discharge Summary Admission Date Apr 15, 2017 at 09:19 Discharge Date: Apr 16, 2017 Admitting Diagnosis Pneumonia (1) Pneumonia ICD Codes: J18.9 - Pneumonia, unspecified organism Status: Acute (2) Diarrhea ICD Codes: R19.7 - Diarrhea, unspecified Status: Acute (3) Nausea & vomiting ICD Codes: R11.2 - Nausea with vomiting, unspecified Status: Acute (4) Tobacco abuse ICD Codes: Z72.0 - Tobacco use Status: Chronic Consultants Dr. Bahena Procedures bronchoscopy with Dr. Bahena 04/15/17 Brief History Mr. Caruso is a pleasant 61 y/o WM with hx of tobacco use and MRSA infections/osteomyelitis in his hands in the distant past who presented to ED at [facility] [place] with complaints of flu like symptoms which began 6 days ago. Pt reports that his symptoms initially started with fever and myalgias with Tmax of 104.5. He had congestion and cough but not any worse than he typically has related to his smoking. Around 4-5 days ago he abdominal cramping with diarrhea which lasted 2-3 days. Then 2 days ago he started having vomiting and has been unable to keep much of any food or fluids down. He reports that today he has not had a significant fever, yesterday it was as high as 101 degrees. Yesterday he reports that he was able to eat and drink a small amount for the first time but then began to feel nauseous. He has been using Tylenol and Ibuprofen for the fevers and some holistic remedies for the fevers but otherwise no new medications. Patient denies any sick contacts, denies any recent travels or trips. He has not taken any antipyretics this morning. He has had some right sided chest discomfort with coughing but otherwise denies any SOB, palpitations , dizziness or weakness. He has lost about 4lbs over the last few days. Labs in the ED noted WBC count 16.8, Hgb 12.9/Hct 37.7, and Na+ 132. CXR noted patchy partially consolidative segmental infiltrates in the right upper lobe. Pt was started on Rocephin and Azithromycin in the ED. CBC/BMP: 04/15/17 1159 04/13/17 0810 Significant Findings Laboratory Tests Test 04/14/17 05:21 04/14/17 12:38 04/15/17 11:59 White Blood Count 15.0 TH/MM3 (4.0-11.0) 14.4 TH/MM3 (4.0-11.0) Red Blood Count 3.57 MIL/MM3 (4.50-5.90) 3.62 MIL/MM3 (4.50-5.90) Hemoglobin 11.4 GM/DL (13.0-17.0) 11.6 GM/DL (13.0-17.0) Hematocrit 33.7 % (39.0-51.0) 34.4 % (39.0-51.0) Neutrophils (%) (Auto) 82.7 % (16.0-70.0) 81.7 % (16.0-70.0) Neutrophils # (Auto) 12.4 TH/MM3 (1.8-7.7) 11.7 TH/MM3 (1.8-7.7) Monocytes # (Auto) 1.1 TH/MM3 (0-0.9) Prothrombin Time 12.4 SEC (9.8-11.6) Imaging Last Impressions Abdomen X-Ray 04/14/17 0000 Signed Impressions: Service Date/Time: Friday, April 14, 2017 15:47 - CONCLUSION: 1. Radiographically benign abdomen without obstruction or pneumoperitoneum. 2. Osseous screws securing the L4-5 and L5-S1 levels. The right-sided L4-5 screw is fractured. Cyril Berrios MD Chest CT 04/13/17 0600 Signed Impressions: Service Date/Time: Thursday, April 13, 2017 09:36 - CONCLUSION: 1. Acute on chronic infiltrate within the right upper lobe. There is some cavitation observed suggesting infection with atypical organisms. Followup studies to document resolution are needed. 2. Underlying emphysematous change. Eduar Silva Jr., MD Chest X-Ray 04/12/17 1020 Signed Impressions: Service Date/Time: Wednesday, April 12, 2017 10:49 - CONCLUSION: Patchy partially consolidative segmental infiltrates in the right upper lobe. Recommend followup films to radiographic resolution. Eduar Smith MD PE at Discharge GENERAL: This is a well-nourished, well-developed patient, in no apparent distress. CARDIOVASCULAR: Regular rate and rhythm without murmurs, gallops, or rubs. RESPIRATORY: clear GASTROINTESTINAL: Abdomen soft, non-tender, nondistended. Normal active bowel sounds MUSCULOSKELETAL: Extremities without clubbing, cyanosis, or edema. NEURO: Alert & Oriented x4 to person, place, time, situation. Moves all ext x4 Hospital Course Pneumonia- sputum culture positive for Pseudomonas - Pt is a 61 y/o WM with hx of tobacco use and MRSA infections/osteomyelitis in his hands in the distant past who presented to ED at [facility] [place] with complaints of flu like symptoms which began 6 days ago which included, fever with Tmax 104, myalgias, cough, congestion, N/V/D - No recent abx use, no new medications, denies any sick contacts, denies any recent travels or trips. - He has had some right sided chest discomfort with coughing - Labs in the ED noted WBC count 16.8, Hgb 12.9/Hct 37.7, and Na+ 132. - CXR noted patchy partially consolidative segmental infiltrates in the right upper lobe. - Pt was started on Rocephin and Azithromycin (04/12 - present) - Pt tested negative for influenza in the ED - Blood cultures (04/12) --> no growth x 4 days - CT chest (04/13) --> right cavitating lesions - PPD skin test 04/14/17 evaluated no induration noted, neg - expectorated sputum culture reviewed pseudomonas sensitive to Levaquin, will DC home with Levaquin PO - expectorated sputum acid fast stain no acid fast bacilli seen - Consult Pulmonary, S/P bronchoscopy 04/15/17 - bronchial washings pending- patient to follow up with PCP and Pulmonology - Duonebs Q6H WA - prednisone 60 mg PO BID- patient refusing steroids - Zofran PRN - Diet as tolerated - Supportive care - DVT prophylaxis with SCDs Diarrhea- resolved - See above Nausea & vomiting - See above Tobacco abuse - Discussed cessation - Nicotine patch Pt Condition on Discharge: Stable Discharge Disposition: Discharge Home Discharge Instructions DIET: Follow Instructions for: As Tolerated, No Restrictions Activities you can perform: Regular-No Restrictions Follow up Referrals: PCP Follow-up - [address] Ward Pulmonology - 2 Weeks with Shruti Bahena MD New Medications: Albuterol 8.5 GM Inh (Proair Hfa 8.5 GM Inh) 90 Mcg/Act Aer 2 PUFF INH Q4-6H PRN for SHORTNESS OF BREATH, #1 INHALER 0 Refills 108 mcg/actuation Levofloxacin (Levofloxacin) 500 Mg Tablet 500 MG PO DAILY for Infection for 6 Days, #6 TAB 0 Refills Additional Information Patient examined. Assessment and plan formulated with Amanda Macias PA-C. I agree with the above. Amanda Macias Apr 16, 2017 13:46 Mike Grigsby DO Apr 18, 2017 22:50
== END 2017-04-16 17:15 | disposition home or self-care (01) | DRG 167 ==
LOC: NEPD 10:05 → NEDA 13:11 → OBSVTOIN 13:27 → INTOOBSV 13:27 → N07A 14:16 → OBSVTOIN 04-15 09:19
PROVIDERS: ADMIT Hospitalist; ATTEND Hospitalist
PROC: 0BDC8ZX Extraction of Right Upper Lung Lobe, Via Natural or Artificial Opening Endoscopic, Diagnostic (ICD-10-PCS; 2017-04-15)
PROC: 0B9C8ZZ Drainage of Right Upper Lung Lobe, Via Natural or Artificial Opening Endoscopic (ICD-10-PCS; principal; 2017-04-15 15:34)
DX: J15.1 Pneumonia due to Pseudomonas (principal); J44.0 Chronic obstructive pulmonary disease with (acute) lower respiratory infection; E86.0 Dehydration; F17.210 Nicotine dependence, cigarettes, uncomplicated; R19.7 Diarrhea, unspecified; R11.2 Nausea with vomiting, unspecified; F12.90 Cannabis use, unspecified, uncomplicated; Z86.14 Personal history of Methicillin resistant Staphylococcus aureus infection; Z89.021 Acquired absence of right finger(s)
CPT/HCPCS: 71020; 71260; 74000; 80048; 85025; 85610; 87015; 87040; 87070; 87077; 87102; 87116; 87186; 87205; 87206; 87804; 93005; 94640; 94664; 96361; 96365; 96366; 96367; 96375; 96376; G0378; J0171; J0456; J0696; J2405; J2930; J3480; J7030; J7050; J7512; J7613; Q9967